=== PATIENT | female | born 1960 | race Caucasian/White ===

== ENCOUNTER 2016-11-14 10:31 | Emergency (ER) | payer OTHER ==
[2016-11-14 10:47] VITALS: BP 158/86
[2016-11-14] MEDS ORDERED: Aspirin Low Dose CHEW TAB* 81 MG PO ONE (11:03)
--- NOTE | 2016-11-14 11:12 | UC ---
Cardiac HPI - HPI Summary HPI Summary: 56 yo female with the onset on chest pressure which started about 9 AM after a big breakfast no sob feels anxious some nausea some dry heaves no abd pain states she has been awakened by heart burn the past few evenings - History of Current Complaint Chief Complaint: UCGeneralIllness Stated Complaint: CHEST PAIN Time Seen by Provider: 11/14/16 10:32 Hx Obtained From: Patient Onset/Duration: Sudden Onset, Lasting Hours Timing: Constant Initial Severity: Severe Current Severity: Mild Pain Intensity: 2 Chest Pain Location: Mid Sternal Character: Burning, Pressure/Squeezing Aggravating Factor(s): Nothing Alleviating Factor(s): Nothing Associated Signs & Symptoms: Positive: Chest Pain, Anxiety, Headaches, Nausea/ Vomiting - nausea/dry heaves - Allergy/Home Medications Allergies/Adverse Reactions: Allergies Allergy/AdvReac Type Severity Reaction Status Date / Time Penicillins [PCN] Allergy Rash Verified 11/14/16 10:47 Home Medications: Home Medications Bupropion XL* [Wellbutrin XL *] 300 mg PO DAILY 11/14/16 [History Confirmed 03/02] Lisinopril/HCTZ 20/12.5(NF) [Zestoretic 20/12.5(NF)] 1 tab PO DAILY 11/14/16 [ History Confirmed 11/14/16] PMH/Surg Hx/FS Hx/Imm Hx Endocrine History: Dyslipidemia Cardiovascular History: Hypertension - Surgical History Surgical History: Yes Surgery Procedure, Year, and Place: cyst on right kidney removed age 8. repair of deviated septum around 1999 - Family History Known Family History: Positive: Hypertension - Social History Alcohol Use: Occasionally Substance Use Type: None Smoking Status (MU): Former Smoker Amount Used/How Often: about 3/4 ppd Length of Time of Smoking/Using Tobacco: about age 16 to age 56 (quit about 4 months ago) Review of Systems Constitutional: Negative Skin: Negative Eyes: Negative ENT: Negative Respiratory: Negative Cardiovascular: Chest Pain Gastrointestinal: Nausea Genitourinary: Negative Motor: Negative Neurovascular: Negative Musculoskeletal: Negative Neurological: Negative Psychological: Negative Is Patient Immunocompromised?: No All Other Systems Reviewed And Are Negative: Yes Physical Exam Triage Information Reviewed: Yes Appearance: Well-Appearing, No Pain Distress, Well-Nourished, Ill-Appearing Vital Signs: Initial Vital Signs Temp 98.6 F 10/01/17 10:35 Pulse 111 11/14/16 10:35 Resp 20 11/14/16 10:35 BP 158/86 11/14/16 10:35 Pulse Ox 95 11/14/16 10:35 Vital Signs Reviewed: Yes Eyes: Positive: Conjunctiva Clear ENT: Positive: Hearing grossly normal. Negative: Nasal congestion, Nasal drainage, Trismus, Muffled/hoarse voice Neck: Positive: Supple, Nontender, No Lymphadenopathy Respiratory: Positive: Lungs clear, Normal breath sounds, No respiratory distress, No accessory muscle use Cardiovascular: Positive: RRR, No Murmur, Tachycardia Abdomen Description: Positive: Nontender, No Organomegaly, Soft Bowel Sounds: Positive: Present Musculoskeletal: Positive: ROM Intact, No Edema Neurological Exam: Normal Neurological: Positive: Alert Psychological Exam: Normal Skin Exam: Normal Diagnostics - EKG Cardiac Rate: Tachycardia Cardiac Rhythm: Sinus: Normal Ectopy: None ST Segment: Non-Specific - Assessment/Plan Course Of Treatment: I informed patient that I thought it was most prudent to go to the ER for further evaluation of her symptoms. She declines EMS transfer. Aware of potential for deterioration en route. She signed AMA form for declining EMS. [facility] informed ([facility] [place]) and they will be expecting patient - Clinical Impression Provider Diagnoses: chest pain of uncertain cause. abnormal EKG (sinus tach and non specific ST changes) Discharge - Discharge Plan Condition: Guarded Disposition: TRANS HIGHER LVL OF CARE FAC
== END 2016-11-14 11:17 | disposition left against medical advice (07) ==
LOC: UCCORT 10:31
DX: R07.9 Chest pain, unspecified (principal); I10 Essential (primary) hypertension; E78.5 Hyperlipidemia, unspecified; R94.31 Abnormal electrocardiogram [ECG] [EKG]
CPT/HCPCS: 93005; 99202; A9270-GY; G0463